=== PATIENT | male | born 1995 | race African-American/Black ===

== ENCOUNTER 2017-10-16 20:34 | Emergency (ER) | payer OTHER, SELFPAY ==
[2017-10-16 20:44] VITALS: BP 126/87; PULSE 86; RESP 16; TEMP 37.1; O2SAT 97; BMI 33.8
[2017-10-16 20:58] VITALS: BP 126/87; PULSE 86; RESP 16; TEMP 37.1; O2SAT 97; BMI 33.8
--- NOTE | 2017-10-16 21:33 | DI.CT.S_ITS ---
PROCEDURE: CT HEAD/BRAIN WO CON INDICATIONS: 22 year old new onset, terrible headache TECHNIQUE: Noncontrast 4.5 mm thick angled axial sections acquired from the foramen magnum to the vertex, with coronal and sagittal reformats. For radiation dose reduction, the following was used: automated exposure control, adjustment of mA and/or kV according to patient size. COMPARISON: None. FINDINGS: Image quality: Excellent. CSF spaces: Basal cisterns are patent. No extra-axial fluid collections. Ventricles are normal in size and shape. Brain: There is mild enlargement of sella. 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 No midline shift. No intracranial masses or hemorrhage. Galindo-white matter interface is normal. Skull and face: Calvarium and visualized facial bones are intact, without suspicious lesions. Sinuses: There is an air-fluid level in the right maxillary sinus consistent with sinusitis. Mild because of thickening in the sphenoid sinue. Mastoids are clear. IMPRESSION: 1. No acute intracranial abnormalities. 2. 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 Recommend MRI with and without contrast for follow up. 3. Right maxillary sinusitis. Dictated by: Juan Bravo M.D. on 10/16/2017 at 22:08 Transcribed by: JESÚS on 10/16/2017 at 22:15 Approved by: Juan Bravo M.D. on 10/16/2017 at 22:17
[2017-10-16] MEDS: SODIUM CHLORIDE 0.9% 1,000 ML 1000 ML IV (21:47)
[2017-10-16] MEDS: DEXAMETHASONE 10 MG/ML VIAL IV (21:48)
[2017-10-16] MEDS: diphenhydrAMINE 50 MG/ML VIAL 25 MG IV (21:48)
[2017-10-16] MEDS: METOCLOPRAMIDE 10 MG/2 ML INJ IV (21:48)
[2017-10-16 21:50] LABS: Add Manual Diff / Slide Review NO; Basophils Percent Auto 0.8 % (0-2); Eosinophils Percent Auto 0.3 % (2-4); Hematocrit 41.1 % (41-53); Hemoglobin 14.2 g/dL (13.5-17.5); Lymphocytes Percent Auto 27.3 % (25-40); Mean Corpuscular HGB Conc 34.6 % (30-36); Mean Corpuscular Hemoglobin 29.4 PG (26-34); Mean Corpuscular Volume 85.1 fL (80-100); Monocytes Percent Auto 8.1 % (3-14); Neutrophils Absolute Auto 3100 /uL (3000-5900); Neutrophils Percent Auto 63.5 % (50-75); Platelet Count 158 X10^3/uL (150-400); Red Blood Cell Count 4.83 X10^6/uL (4.5-5.9); Red Cell Distribution Width 12.4 % (11.6-14.8); White Blood Cell Count 4.9 X10^3/uL (4.5-11.0)
[2017-10-16 22:01] LABS: BUN Creatinine Ratio 13.3 (6-22); Calcium 9.3 mg/dL (8.4-10.2); Estimated Glomerular Filt Rate > 60.0 mL/min (>60); Glucose 102 mg/dL (70-100); HEMOLYSIS < 15 (0-50); Potassium 3.9 mmol/L (3.4-5.1); Sodium 142 mmol/L (137-145)
[2017-10-16] MEDS: KETOROLAC 60 MG/2 ML VIAL 30 MG IV (22:55)
[2017-10-16 23:04] VITALS: BP 134/70; PULSE 54; RESP 96
--- NOTE | 2017-10-17 03:26 | ED_ITS ---
HPI - Headache General Chief Complaint: Headache Stated Complaint: VOMITING, HEADACHE Time Seen by Provider: 10/16/17 20:45 Source: patient Mode of arrival: ambulatory Limitations: no limitations History of Present Illness HPI Narrative: Patient presents to the emergency department today with a chief complaint of gradually worsening headache over the past 2 weeks with multiple episodes of vomiting. The patient has become dizzy, weak and lightheaded. His pain is worse with bright lights and loud noise. He denies any recent injury nor fever, chills or neck pain. He denies any change in medications. His headache started upon return from a deployment to [facility] Complaint: headache Onset (ago): week(s) Onset description: gradual Location: diffuse Severity: moderate Quality: aching, throbbing and different than previous headaches Relieving factors: nothing Exacerbating factors: light and noise Associated symptoms: nausea and vomiting Related Data Previous Rx's Medication Instructions Recorded ondansetron [Zofran ODT] 4 mg PO Q6H PRN #14 tab 10/17/17 Allergies Allergy/AdvReac Type Severity Reaction Status Date / Time No Known Drug Allergies Allergy Verified 10/16/17 20:50 Review of Systems Review of Systems All systems reviewed & are unremarkable except as noted in HPI and below Constitutional Denies chills, Denies fever(s), Reports headache(s), Denies lethargy and Denies weakness Eyes Denies change in vision, Denies eye discharge, Denies irritation and Denies loss of vision ENT Ears, Nose, Mouth, and Throat: Reports headache(s) and Denies throat swelling Cardiovascular Denies chest pain, Denies irregular heart rhythm, Denies lightheadedness, Denies palpitations and Denies orthopnea Respiratory Denies wheezing Gastrointestinal Gastrointestinal: Denies abdominal pain, Denies change in bowel habits, Denies diarrhea, Reports nausea and Reports vomiting Genitourinary Denies hematuria, Denies flank pain, Denies urinary incontinence and Denies urinary urgency Integumentary/Breasts Denies pruritus, Denies erythema, Denies rash and Denies wounds Neurologic Denies confusion, Reports headache(s), Denies loss of vision and Denies weakness Psychiatric Denies anxiety, Denies confusion, Denies depression, Denies homicidal ideation and Denies suicidal ideation Endocrine Denies palpitations Hematologic/Lymphatic Denies easy bruising Allergic/Immunologic Denies urticaria, Denies throat swelling and Denies wheezing [facility] Social History Smoking Status: Current every day smoker Exam Narrative Exam Narrative: Pleasant 22-year-old male obviously in pain, clutching his head , sitting in a dark room Initial Vital Signs Initial Vital Signs: Vital Signs Temperature 98.7 F 10/16/17 20:44 Pulse Rate 86 10/16/17 20:44 Respiratory Rate 16 10/16/17 20:44 Blood Pressure 126/87 H 10/16/17 20:44 Pulse Oximetry 97 10/16/17 20:44 Const General: cooperative and well developed Nutritional Appearance: well nourished Orientation: alert, awake, oriented x3 and not confused HENMT Head: normocephalic and atraumatic Ears: external ears normal and TM's normal bilaterally Nose: external nose normal and No nasal discharge Face and sinus: sinuses nontender, face symmetric, no sinus tenderness and No dry mucous membranes Mouth: oral mucosae normal and moist mucous membranes Teeth and gingiva: dentition normal Throat: tonsils normal and uvula midline Eyes General: appearance normal, both eyes and all related structures Eyelids: eyelids normal Conjunctivae: conjunctivae normal Sclera: sclerae normal Pupils: PERRL EOM: EOM intact bilaterally Resp Effort & Inspection: normal respiratory effort, able to speak in complete sentences, no respiratory distress and no use of accessory muscles Auscultation: clear to auscultation bilaterally, no rales, no rhonchi and no wheezes GI Inspection: non-distended Palpation: soft, no hepatosplenomegaly, No guarding, No pulsatile mass and No tender Auscultation: normal bowel sounds Skin General: no rashes or lesions noted, No jaundice and No petechiae Neuro General: alert, awake, oriented x3, gait normal and no focal motor deficits Cranial Nerves: CN's II-XI intact bilaterally Speech: speech normal Gait: normal gait Motor: muscle tone normal throughout Sensory Exam: no sensory deficits noted Other: NIH Stroke Scale 1a. LOC: Patient is alert and keenly responsive (0) 1b. LOC Questions: Patient answers both LOC questions accurately (0) 1c. LOC Commands: Patient performs both tasks correctly (0) 2. Best Gaze: Normal (0) 3. Visual: No visual loss (0) 4. Facial palsy: Normal symmetrical movements (0) 5. Motor arm: No drift (0) 6. Motor leg: No drift (0) 7. Limb ataxia: Absent (0) 8. Sensory: Normal (0) 9. Best language: No aphasia; normal (0) 10. Dysarthria: Normal (0) 11. Extinction and inattention: No abnormality (0) NIHSS: 0 Extrem General: full ROM, no clubbing, cyanosis or edema, no pedal edema and no calf tenderness Course Orders Ordered: ED Orders 10/16/17 21:24 Basic Metabolic Panel Stat Complete Blood Count AUTO DIFF Stat 10/16/17 21:33 CT head/brain wo con Stat Discontinued Medications Dexamethasone (Decadron) 10 mg IV NOW ONE Stop: 10/16/17 21:34 Last Admin: 10/16/17 21:48 Dose: 10 mg Diphenhydramine HCl (Benadryl) 25 mg IV NOW ONE Stop: 10/16/17 21:34 Last Admin: 10/16/17 21:48 Dose: 25 mg Sodium Chloride (Normal Saline 0.9%) 1,000 mls @ 1,000 mls/hr IV BOLUS ONE Stop: 10/16/17 22:32 Last Infusion: 10/16/17 23:44 Dose: 1,000 mls/hr Admin: 10/16/17 21:47 Dose: 1,000 mls/hr Ketorolac Tromethamine (Toradol) 30 mg IV NOW ONE Stop: 10/16/17 22:55 Last Admin: 10/16/17 22:55 Dose: 30 mg Metoclopramide HCl (Reglan) 10 mg IV NOW ONE Stop: 10/16/17 21:34 Last Admin: 10/16/17 21:48 Dose: 10 mg Vital Signs - 8 hr 10/16/17 20:44 10/16/17 20:58 10/16/17 23:04 Temperature 98.7 F 98.7 F Pulse Rate 86 86 54 L Respiratory Rate 16 16 96 H Blood Pressure 126/87 H 126/87 H Blood Pressure [Left Arm] 134/70 H Pulse Oximetry 97 97 MDM - Headache Lab Data Result diagrams: 10/16/17 21:24 10/16/17 21:24 Lab Results 10/16/17 10/16/17 Range/Units 21:24 21:24 WBC 4.9 (4.5-11.0) X10^3/uL RBC 4.83 (4.5-5.9) X10^6/uL Hgb 14.2 (13.5-17.5) g/dL Hct 41.1 (41-53) % MCV 85.1 (80-100) fL MCH 29.4 (26-34) PG MCHC 34.6 (30-36) % RDW 12.4 (11.6-14.8) % Plt Count 158 (150-400) X10^3/uL Neut % (Auto) 63.5 (50-75) % Lymph % (Auto) 27.3 (25-40) % [place] % (Auto) 8.1 (3-14) % Eos % (Auto) 0.3 L (2-4) % Baso % (Auto) 0.8 (0-2) % Neut # (Auto) 3100 (0799-4606) /uL Sodium 142 (137-145) mmol/L Potassium 3.9 (3.4-5.1) mmol/L Chloride 101.0 (98-107) mmol/L Carbon Dioxide 28.0 (22-32) mmol/L BUN 12.0 (9-20) mg/dL Creatinine 0.90 (0.66-1.25) mg/dL Estimated GFR > 60.0 (>60) mL/min BUN/Creatinine Ratio 13.3 (6-22) Glucose 102 H (70-100) mg/dL Calcium 9.3 (8.4-10.2) mg/dL Imaging Data CT scan - head: Radiologist's impression: PROCEDURE: XR WRIST RT MIN 3V INDICATIONS: fall, obvious deformity TECHNIQUE: 3 views of the wrist were acquired. COMPARISON: None. FINDINGS: Bones: There is a comminuted, intra-articular fracture of the distal radius with impaction. In addition, there is a ulnar styloid fracture. There is severe osteopenia. Severe degenerative disease is present involving the triscaphe joint and the first carpal metacarpal joint. No suspicious bony lesions. Soft tissues: No suspicious soft tissue calcifications. Soft tissue swelling over the wrist. IMPRESSION: 1. Comminuted intra-articular fracture of the distal radial metaphysis with impaction. 2. Ulnar styloid fracture. 3. Severe osteopenia limits visualization of carpal bones. 4. Severe degenerative joint disease. Dictated by: Juan Bravo M.D. on 10/16/2017 at 20:24 Approved by: Juan Bravo M.D. on 10/16/2017 at 20:26 Discharge Plan Departure Patient Disposition: Home, Self-Care Clinical Impression: Headache Discharge Date/Time: 10/17/17 00:19 Interventions: ED Discharge Assessment Last Done: 10/17/17 00:18 Instructions: DI for Headache Activity Restrictions/Additional Instructions: *You have been diagnosed with [ headache ] *What to do: When following up with her doctor, have them obtain records from today's visit. Your head CT shows a small 1 cm mass that needs to be further characterized by MRI within the next few days to 1 week. *Take medications as directed *Follow up with your primary care provider in the next 1-2 days. Call tomorrow for an appointment *Return to ER if you should have [such as neurologic symptoms including blurred vision, difficulty with speech or numbness of your extremities] [or] any new, worsening or concerning symptoms Prescriptions: New ondansetron [Zofran ODT] 4 mg tablet,disintegrating 4 mg PO Q6H PRN (Reason: nausea and vomiting) Qty: 14 RF: 0 Stand Alone Forms: Work/School Restrictions
== END 2017-10-17 00:19 | disposition home or self-care (01) ==
PROVIDERS: Emergency Provider Emergency Medicine
DX: R51 Headache (principal)
CPT/HCPCS: 36591; 70450; 80048; 82962; 85025; 96361; 96374; 96375; 99283; 99284; J1100; J1200; J1885; J2765